=== PATIENT | male | born 1980 | race Caucasian/White ===

== ENCOUNTER 2017-08-23 01:38 | Emergency (ER) | payer OTHER ==
[~2017-08-23] VITALS: Ht 188 cm; Wt 81.6 kg
[2017-08-23 01:40] VITALS: BP 129/93
--- NOTE | 2017-08-23 01:43 | ED.ADGEN ---
Past History Past Medical History: Other Adult General Chief Complaint Chief Complaint " ... I ve got the crud...everyone here for christo has the crud.. 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 Patient recently arrived in [place] from [place] for training. 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 Patient is up-to-date with vaccinations. No history immunosuppression. He will follow-up [facility]. Review of Systems Review of Systems Constitutional: History fever or chills [] Eyes: Denies change in visual acuity, redness, or eye pain [] HENT: History nasal congestion and sore throat [] Respiratory: History cough. Denies shortness of breath [] Cardiovascular: No additional information not addressed in HPI [] GI: Denies abdominal pain, nausea, vomiting, bloody stools or diarrhea [] : Denies dysuria or hematuria [] Musculoskeletal: Denies back pain or joint pain [] Integument: Denies rash or skin lesions [] Neurologic: Denies headache, focal weakness or sensory changes [] Endocrine: Denies polyuria or polydipsia [] All other systems were reviewed and found to be within normal limits, except as documented in this note. Family History Family History Noncontributory Current Medications Current Medications Current Medications Medications (Trade) Dose Ordered Sig/Angeles Start Time Stop Time Status Last Admin Dose Admin Ibuprofen (Motrin) 600 mg STK-MED ONCE 08/23/17 02:11 08/23/17 02:46 DC Prednisone (Prednisone) 20 mg STK-MED ONCE 08/23/17 02:11 08/23/17 02:46 DC See nursing for home meds Allergies Allergies No known drug allergies Physical Exam Physical Exam Constitutional: Well developed, well nourished, mild distress, non-toxic appearance. [] HENT: Normocephalic, atraumatic, bilateral external ears normal, oropharynx moist, injected pharynx no oral exudates, nose swollen turbinates and rhinorrhea Eyes: PERRLA, EOMI, conjunctiva normal, no discharge. [] Neck: Normal range of motion, no tenderness, supple, no stridor. [] Cardiovascular:Heart rate regular rhythm, no murmur [] Lungs & Thorax: Bilateral breath sounds clear to auscultation [] Abdomen: Bowel sounds normal, soft, no tenderness, no masses, no pulsatile masses. [] Skin: Warm, dry, no erythema, no rash. [] Back: No tenderness, no CVA tenderness. [] Extremities: No tenderness, no cyanosis, no clubbing, ROM intact, no edema. [] Neurologic: Alert and oriented X 3, normal motor function, normal sensory function, no focal deficits noted. [] Psychologic: Affect normal, judgement normal, mood normal. [] Current Patient Data Vital Signs Vital Signs Date Time Temp Pulse Resp B/P (MAP) Pulse Ox O2 Delivery O2 Flow Rate FiO2 08/23/17 01:40 97.9 66 20 99 Room Air Lab Results Laboratory Tests Test 08/23/17 01:50 Influenza Type A (Rapid) Negative (NEGATIVE) Influenza Type B (Rapid) Negative (NEGATIVE) Group A Streptococcus Rapid Negative (NEGATIVE) EKG EKG [] Radiology/Procedures Radiology/Procedures [] Course & Med Decision Making Course & Med Decision Making Pertinent Labs and Imaging studies reviewed. (See chart for details). Push fluids and fruit juices. Take Tylenol for pain, fever and discomfort. Take over -the-counter Benadryl 25-50 mg 4 times a day may be helpful. Follow-up primary care. [] Final Impression Final Impression 1. Pharyngitis[] 2. Viral Syndrome Problems: Dragon Disclaimer Dragon Disclaimer This electronic medical record was generated, in whole or in part, using a voice recognition dictation system. BRIGIDA THRASHER MD Aug 23, 2017 01:43
[2017-08-23] MEDS ORDERED: predniSONE 20 MG TABLET PO ONE (02:00)
[2017-08-23] MEDS ORDERED: IBUPROFEN 600 MG TABLET. PO ONE ×2 (02:00→02:11)
[2017-08-23] MEDS ORDERED: IBUP400T18 PO (02:03)
[2017-08-23] MEDS ORDERED: DIPH25CA58 PO (02:03)
[2017-08-23] MEDS ORDERED: ACET500T68 PO (02:03)
[2017-08-23] MEDS ORDERED: HYDR-79 PO (02:03)
[2017-08-23] MEDS ORDERED: predniSONE 20 MG TABLET ONE (02:11)
[2017-08-23 02:32] LABS: INFLUENZA A PATIENT NEGATIVE (NEGATIVE); INFLUENZA B PATIENT NEGATIVE (NEGATIVE)
== END 2017-08-23 02:45 | disposition home or self-care (01) ==
LOC: ER 01:38 → ICU 13:37 → UNDOADMIN 13:37
DX: J02.9 Acute pharyngitis, unspecified (principal); B34.9 Viral infection, unspecified
CPT/HCPCS: 87070; 87804; 87880; 99284; J7512